=== PATIENT | female | born 1945 | race African-American/Black ===

== ENCOUNTER 2018-09-10 09:32 | Inpatient (IN) ==
[2018-09-10] MEDS ORDERED: SODIUM CHLORIDE 0.9% 1,000 ML IV STA (10:19)
[2018-09-10] MEDS ORDERED: ONDANSETRON 4 MG/2 ML VIAL IV STA (10:19)
[2018-09-10] MEDS ORDERED: HYDROmorphone 2 MG/1 ML VIAL IV STA (10:19)
[2018-09-10 10:52] LABS: Basophils % 0.3 % (0.0-0.8); Eosinophils # 0.1 10*3/uL (0.0-0.87); Eosinophils % 0.8 % (0.00-10.9); Hematocrit 43.4 VOL% (35.7-47.0); Hemoglobin 14.1 GM/DL (12.0-16.0); Immature Granulocytes % 0.3 %; Immature Granulocytes Absolute 0.03 #; Lymphocytes # 2.2 10*3/uL (1.4-4.0); Lymphocytes % 24.7 % (21.3-54.2); Mean Corpuscular HGB Conc 32.5 GM/DL (32-36); Mean Corpuscular Volume 92.7 FL (87-102); Monocytes % 9.6 % (1.7-12.7); Neutrophils % 64.3 % (38.7-73.9); Platelet Count 157 T/CUMM (130-400); Red Blood Count 4.68 MC/CUMM (3.8-5.5); Red Cell Distribution Width 14.4 % (9.3-17.3); White Blood Count 9.1 T/CUMM (4-12)
[2018-09-10 11:05] LABS: Albumin 3.9 G/DL (3.4-5.0); Bilirubin,Total 0.9 MG/DL (0.2-1.0); Total Protein 8.6 G/DL (6.4-8.3)
[2018-09-10 12:27] LABS: Apearance,Urine CLEAR (Clear); Bacteria,Urine Occasional /HPF (Few); Bilirubin,Urine Negative (Negative); Blood, Urine Small mg/dL (Negative); Glucose,Urine (UA) Negative (Negative); Hyaline Casts,Urine 4 /LPF (0-3); Ketones,Urine 5 mg/dL (Negative); Mucus,Urine Occasional /LPF (Occasional); Nitrite,Urine Negative (Negative); Protein,Urine Negative; RBC,Urine 1 /HPF (0-4); Squamous Epithelial Cell,Urine Occasional /HPF (0-10); Urine Color Yellow (Yellow); Urine Specific Gravity 1.013 (1.001-1.035); Urine Urobilinogen < 2.0 EU/DL (0.2-1.0); WBC,Urine 1 /HPF (0-6)
[2018-09-10] MEDS: HYDROmorphone 2 MG/1 ML VIAL IV PRN ×2 (15:13→20:34)
[2018-09-10] MEDS: DEXTROSE 5% NACL 0.45% 1,000 ML IV SCH (15:22)
[2018-09-11] MEDS: DEXTROSE 5% NACL 0.45% 1,000 ML IV SCH ×3 (03:15→16:11)
[2018-09-11 04:25] LABS: Basophils % 0.1 % (0.0-0.8); Eosinophils # 0.1 10*3/uL (0.0-0.87); Eosinophils % 0.6 % (0.00-10.9); Hematocrit 36.2 VOL% (35.7-47.0); Hemoglobin 11.9 GM/DL (12.0-16.0); Immature Granulocytes % 0.4 %; Immature Granulocytes Absolute 0.03 #; Lymphocytes # 1.1 10*3/uL (1.4-4.0); Lymphocytes % 13.4 % (21.3-54.2); Mean Corpuscular HGB Conc 32.9 GM/DL (32-36); Mean Corpuscular Volume 92.1 FL (87-102); Mean Platelet Volume 10.4 FL (9.6-12.0); Monocytes % 13.4 % (1.7-12.7); Neutrophils % 72.1 % (38.7-73.9); Platelet Count 152 T/CUMM (130-400); Red Blood Count 3.93 MC/CUMM (3.8-5.5); Red Cell Distribution Width 14.1 % (9.3-17.3); White Blood Count 8.1 T/CUMM (4-12)
[2018-09-11 04:41] LABS: Calcium 8.1 MG/DL (8.5-10.1); Osmolality,Calculated 285.3 MOS/KG (273-304)
[2018-09-11] MEDS: HYDROmorphone 2 MG/1 ML VIAL IV PRN ×4 (04:41→19:03)
[2018-09-11] MEDS: PANTOPRAZOLE 40 MG VIAL IV SCH (09:12)
[2018-09-11] MEDS: ENOXAPARIN 30 MG/0.3 ML SYRINGE SUBCUT SCH ×2 (09:15→20:27)
[2018-09-11] MEDS: ONDANSETRON 4 MG/2 ML VIAL IV PRN (09:18)
[2018-09-12] MEDS: ONDANSETRON 4 MG/2 ML VIAL IV PRN (00:10)
[2018-09-12] MEDS: HYDROmorphone 2 MG/1 ML VIAL IV PRN ×9 (00:11→22:20)
[2018-09-12] MEDS: DEXTROSE 5% NACL 0.45% 1,000 ML IV SCH ×3 (00:19→21:37)
[2018-09-12] MEDS ORDERED: cefOXitin 2,000 MG in SYRINGE 1 EACH IV ONE ×2 (07:35→12:30)
[2018-09-12] MEDS: PANTOPRAZOLE 40 MG VIAL IV SCH (08:10)
[2018-09-12] MEDS: ENOXAPARIN 30 MG/0.3 ML SYRINGE SUBCUT SCH ×2 (08:13→21:29)
[2018-09-12] MEDS ORDERED: TISSUE ADHESIVE 1 EACH APPLICATOR TOP ONE (11:35)
[2018-09-12] MEDS ORDERED: ONDANSETRON 4 MG/2 ML VIAL ONE (16:04)
[2018-09-12 16:09] LABS: Apearance,Urine CLEAR (Clear); Bilirubin,Urine Negative (Negative); Blood, Urine Small mg/dL (Negative); Glucose,Urine (UA) Negative (Negative); Hyaline Casts,Urine 3 /LPF (0-3); Ketones,Urine Negative (Negative); Mucus,Urine Occasional /LPF (Occasional); Nitrite,Urine Negative (Negative); Protein,Urine Negative; RBC,Urine 3 /HPF (0-4); Squamous Epithelial Cell,Urine Occasional /HPF (0-10); Urine Color Yellow (Yellow); Urine Specific Gravity 1.015 (1.001-1.035); Urine Urobilinogen < 2.0 EU/DL (0.2-1.0); WBC,Urine 3 /HPF (0-6)
[2018-09-12] MEDS ORDERED: GLYCOPYRROLATE 0.4 MG/2 ML VIAL ONE (16:12)
[2018-09-12] MEDS ORDERED: fentaNYL 100 MCG/2 ML VIAL ONE (16:12)
[2018-09-12] MEDS ORDERED: PROPOFOL 200 MG/20 ML VIAL IV ONE (16:12)
[2018-09-12] MEDS ORDERED: ROCURONIUM 100 MG/10 ML VIAL IV ONE (16:12)
[2018-09-12] MEDS ORDERED: SEVOFLURANE 1 UNIT/15 MINUTE INH ONE (16:12)
[2018-09-12] MEDS ORDERED: SUCCINYLCHOLINE 200 MG/10 ML VIAL ONE (16:12)
[2018-09-12] MEDS ORDERED: NEOSTIGMINE 10 MG/10 ML VIAL ONE (16:13)
[2018-09-12] MEDS ORDERED: LACTATED RINGERS 1,000 ML IV ONE ×2 (16:13→22:03)
[2018-09-12] MEDS: ROSUVASTATIN 10 MG TABLET PO SCH (20:51)
[2018-09-12] MEDS: TERAZOSIN 5 MG CAPSULE PO SCH (20:52)
[2018-09-12] MEDS: GABAPENTIN 100 MG CAPSULE PO SCH (20:53)
[2018-09-12 21:36] LABS: Basophils % 0.3 % (0.0-0.8); Hemoglobin 13.7 GM/DL (12.0-16.0); Immature Granulocytes % 0.3 %; Immature Granulocytes Absolute 0.01 #; Lymphocytes # 0.6 10*3/uL (1.4-4.0); Mean Corpuscular HGB Conc 31.9 GM/DL (32-36); Mean Corpuscular Volume 93.7 FL (87-102); Mean Platelet Volume 10.7 FL (9.6-12.0); Monocytes % 11.6 % (1.7-12.7); Neutrophils % 70.8 % (38.7-73.9); Platelet Count 171 T/CUMM (130-400); Red Blood Count 4.59 MC/CUMM (3.8-5.5); White Blood Count 3.4 T/CUMM (4-12)
[2018-09-12 21:54] LABS: Calcium 7.3 MG/DL (8.5-10.1); Osmolality,Calculated 277.7 MOS/KG (273-304)
[2018-09-12] MEDS ORDERED: POTASSIUM CHLORIDE RIDER 10 MEQ in PREMIX 1 EACH IV PRN (22:03)
[2018-09-12] MEDS: POTASSIUM CHLORIDE RIDER 10 MEQ in PREMIX 1 EACH IV PRN ×2 (22:31→23:28)
[2018-09-13] MEDS: POTASSIUM CHLORIDE RIDER 10 MEQ in PREMIX 1 EACH IV PRN ×3 (00:30→02:32)
[2018-09-13 00:33] LABS: Band Neutrophils 22 % (0-10); Hypochromasia Slight; Lymphocytes 22 % (20-55); Metamyelocytes 4 %; Myelocytes 1 %; Platelet Estimate Normal; Reactive Lymphocytes 2+; Segmented Neutrophils 38 % (50-85); Total Cells Counted 100
[2018-09-13] MEDS: HYDROmorphone 2 MG/1 ML VIAL IV PRN ×3 (03:51→17:28)
[2018-09-13 05:46] LABS: Basophils % 0.6 % (0.0-0.8); Hematocrit 39.5 VOL% (35.7-47.0); Hemoglobin 12.7 GM/DL (12.0-16.0); Immature Granulocytes % 0.7 %; Immature Granulocytes Absolute 0.05 #; Lymphocytes # 0.7 10*3/uL (1.4-4.0); Lymphocytes % 10.3 % (21.3-54.2); Mean Corpuscular HGB Conc 32.2 GM/DL (32-36); Mean Corpuscular Volume 93.4 FL (87-102); Mean Platelet Volume 11.3 FL (9.6-12.0); Monocytes % 6.8 % (1.7-12.7); Neutrophils % 81.6 % (38.7-73.9); Platelet Count 181 T/CUMM (130-400); Red Blood Count 4.23 MC/CUMM (3.8-5.5); Red Cell Distribution Width 14.2 % (9.3-17.3); White Blood Count 7.2 T/CUMM (4-12)
[2018-09-13 05:59] LABS: Calcium 7.1 MG/DL (8.5-10.1); Osmolality,Calculated 274.8 MOS/KG (273-304)
[2018-09-13] MEDS ORDERED: LACTATED RINGERS 1,000 ML IV ONE ×2 (07:23→11:46)
[2018-09-13 08:09] LABS: Band Neutrophils 58 % (0-10); Lymphocytes 23 % (20-55); Metamyelocytes 10 %; Myelocytes 2 %; Platelet Estimate Normal; Segmented Neutrophils 3 % (50-85); Total Cells Counted 100
[2018-09-13 08:10] LABS: Anisocytosis 1+; Poikilocytosis Slight; Smudge Cells Few
[2018-09-13] MEDS: DILTIAZEM CD 300 MG CAPSULE PO SCH (08:10)
[2018-09-13] MEDS: POTASSIUM CHLORIDE 20 MEQ TABLET PO SCH (08:10)
[2018-09-13] MEDS: ENOXAPARIN 30 MG/0.3 ML SYRINGE SUBCUT SCH ×2 (08:10→20:25)
[2018-09-13] MEDS: PANTOPRAZOLE 40 MG VIAL IV SCH (08:10)
[2018-09-13] MEDS: DEXTROSE 5% NACL 0.45% 1,000 ML IV SCH (09:00)
[2018-09-13 09:22] LABS: ABG Base Excess -0.6 MMOL/L (-2.5-2.5); ABG HCO3 23.9 MMOL/L (20-26); ABG Oxygen Saturation 93.6 % (95-100); ABG PH 7.422 (7.35-7.45); ABG PO2 65.6 MM HG (80-95); ABG TCO2 20.8 MMOL/L (23-27)
[2018-09-13] MEDS ORDERED: ALBUMIN 5% 12.5 GM/250 ML VIAL IV ONE ×2 (09:56→18:55)
[2018-09-13 11:12] LABS: ABG Base Excess -7.8 MMOL/L (-2.5-2.5); ABG HCO3 18.1 MMOL/L (20-26); ABG Oxygen Saturation 99.4 % (95-100); ABG PCO2 51.9 MM HG (35-48); ABG TCO2 19.2 MMOL/L (23-27)
[2018-09-13 11:13] LABS: ABG PH 7.201 (7.35-7.45)
[2018-09-13] MEDS ORDERED: SEVOFLURANE 1 UNIT/15 MINUTE INH ONE (11:33)
[2018-09-13] MEDS ORDERED: fentaNYL 100 MCG/2 ML VIAL ONE (11:34)
[2018-09-13] MEDS ORDERED: MIDAZOLAM 10 MG/2 ML VIAL ONE (11:34)
[2018-09-13] MEDS ORDERED: ETOMIDATE 40 MG/20 ML VIAL IV ONE (11:34)
[2018-09-13] MEDS ORDERED: SUCCINYLCHOLINE 200 MG/10 ML VIAL ONE (11:34)
[2018-09-13] MEDS ORDERED: PHENYLEPHRINE 1 MG/10 ML SYRINGE IV ONE (11:34)
[2018-09-13] MEDS ORDERED: LACTATED RINGERS 2,000 ML IV ONE (11:35)
[2018-09-13] MEDS ORDERED: ROCURONIUM 100 MG/10 ML VIAL IV ONE (11:35)
[2018-09-13 12:02] LABS: Basophils % 0.2 % (0.0-0.8); Eosinophils % 0.1 % (0.00-10.9); Hematocrit 29.5 VOL% (35.7-47.0); Hemoglobin 9.5 GM/DL (12.0-16.0); Immature Granulocytes % 1.1 %; Immature Granulocytes Absolute 0.12 #; Lymphocytes # 1.2 10*3/uL (1.4-4.0); Lymphocytes % 11.5 % (21.3-54.2); Mean Corpuscular HGB Conc 32.2 GM/DL (32-36); Mean Corpuscular Volume 95.2 FL (87-102); Mean Platelet Volume 10.9 FL (9.6-12.0); Monocytes % 0.8 % (1.7-12.7); Neutrophils % 86.3 % (38.7-73.9); Platelet Count 121 T/CUMM (130-400); Red Cell Distribution Width 14.3 % (9.3-17.3); White Blood Count 10.7 T/CUMM (4-12)
[2018-09-13 12:22] LABS: Calcium 6.6 MG/DL (8.5-10.1); Osmolality,Calculated 277.8 MOS/KG (273-304)
[2018-09-13 12:23] LABS: Band Neutrophils 17 % (0-10); Hypochromasia 1+; Lymphocytes 15 % (20-55); Myelocytes 6 %; Platelet Estimate Adequate; Segmented Neutrophils 62 % (50-85); Total Cells Counted 100
[2018-09-13] MEDS: PIPERACILLIN/TAZOBACTAM 3,375 MG in SODIUM CHLORIDE 0.9% 100 ML IV SCH (12:38)
[2018-09-13] MEDS ORDERED: MAGNESIUM SULF RIDER 2 GM in PREMIX 1 EACH IV ONE (13:30)
[2018-09-13] MEDS: LACTATED RINGERS 1,000 ML IV SCH ×2 (13:46→20:43)
[2018-09-13 14:53] LABS: Apearance,Urine Slightly Hazy (Clear); Bacteria,Urine Occasional /HPF (Few); Bilirubin,Urine Negative (Negative); Blood, Urine Moderate mg/dL (Negative); Glucose,Urine (UA) Negative (Negative); Ketones,Urine Negative (Negative); Mucus,Urine Occasional /LPF (Occasional); Nitrite,Urine Negative (Negative); Protein,Urine Negative; RBC,Urine 3 /HPF (0-4); Squamous Epithelial Cell,Urine Occasional /HPF (0-10); Urine Color Yellow (Yellow); Urine Specific Gravity 1.006 (1.001-1.035); Urine Urobilinogen < 2.0 EU/DL (0.2-1.0); WBC,Urine 5 /HPF (0-6)
[2018-09-13] MEDS ORDERED: GLUCAGON 1 MG VIAL IM PRN (15:06)
[2018-09-13] MEDS ORDERED: DEXTROSE 50% 25 GM/50 ML SYRINGE IV PRN (15:06)
[2018-09-13] MEDS: PROPOFOL 1,000 MG/100 ML BOTTLE IV SCH (15:26)
[2018-09-13] MEDS ORDERED: TRACE ELEMENTS (5) 1 ML, MULTIVITAMIN INJ 10 ML in AMINO ACIDS/DEXT/LYTES 5-15% 2,000 ML IV SCH (17:00)
[2018-09-13] MEDS ORDERED: DEXTROSE 10% 1,000 ML IV PRN (17:00)
[2018-09-13 17:44] LABS: ABG Base Excess -18.4 MMOL/L (-2.5-2.5); ABG HCO3 10.1 MMOL/L (20-26); ABG Oxygen Saturation 98.4 % (95-100); ABG PH 7.212 (7.35-7.45); ABG TCO2 8.3 MMOL/L (23-27)
[2018-09-13 17:47] LABS: ABG PCO2 20.9 MM HG (35-48)
[2018-09-13] MEDS: INSULIN REGULAR 100 UNIT/ML SUBCUT SCH (18:32)
[2018-09-13] MEDS ORDERED: SODIUM BICARBONATE 50 MEQ/50 ML VIAL IV ONE (18:46)
[2018-09-13] MEDS ORDERED: ALBUMIN 5% 25 GM in PREMIX 1 EACH IV ONE (18:51)
[2018-09-13 19:24] LABS: Basophils # 0.1 10*3/uL (0.0-0.2); Basophils % 0.7 % (0.0-0.8); Eosinophils # 0.1 10*3/uL (0.0-0.87); Eosinophils % 0.8 % (0.00-10.9); Hematocrit 30.3 VOL% (35.7-47.0); Hemoglobin 9.6 GM/DL (12.0-16.0); Immature Granulocytes % 0.9 %; Immature Granulocytes Absolute 0.09 #; Lymphocytes # 1.3 10*3/uL (1.4-4.0); Lymphocytes % 12.3 % (21.3-54.2); Mean Corpuscular HGB Conc 31.7 GM/DL (32-36); Mean Corpuscular Volume 94.7 FL (87-102); Mean Platelet Volume 11.1 FL (9.6-12.0); Monocytes % 4.1 % (1.7-12.7); Neutrophils % 81.2 % (38.7-73.9); Platelet Count 132 T/CUMM (130-400); Red Cell Distribution Width 14.2 % (9.3-17.3); White Blood Count 10.5 T/CUMM (4-12)
[2018-09-13 19:40] LABS: Calcium 6.9 MG/DL (8.5-10.1); Osmolality,Calculated 270.1 MOS/KG (273-304)
[2018-09-13 19:51] LABS: Band Neutrophils 36 % (0-10); Burr Cells Few; Eosinophils 2 % (0-10); Hypochromasia Slight; Lymphocytes 15 % (20-55); Metamyelocytes 2 %; Myelocytes 1 %; Platelet Estimate Adequate; Segmented Neutrophils 41 % (50-85); Total Cells Counted 100
[2018-09-13 19:59] LABS: ABG Base Excess 0.7 MMOL/L (-2.5-2.5); ABG HCO3 25.1 MMOL/L (20-26); ABG Oxygen Saturation 98.9 % (95-100); ABG PCO2 42.2 MM HG (35-48); ABG PH 7.393 (7.35-7.45); ABG TCO2 23.7 MMOL/L (23-27)
[2018-09-13] MEDS: ROSUVASTATIN 10 MG TABLET PO SCH (20:25)
[2018-09-13] MEDS: GABAPENTIN 100 MG CAPSULE PO SCH (20:25)
[2018-09-13] MEDS: TERAZOSIN 5 MG CAPSULE PO SCH (20:26)
[2018-09-14] MEDS: INSULIN REGULAR 100 UNIT/ML SUBCUT SCH ×4 (00:42→18:30)
[2018-09-14] MEDS: PIPERACILLIN/TAZOBACTAM 3,375 MG in SODIUM CHLORIDE 0.9% 100 ML IV SCH ×2 (00:46→11:53)
[2018-09-14] MEDS: LACTATED RINGERS 1,000 ML IV SCH ×2 (03:03→09:46)
[2018-09-14 03:19] LABS: ABG Base Excess 1.3 MMOL/L (-2.5-2.5); ABG HCO3 24.4 MMOL/L (20-26); ABG Oxygen Saturation 98.5 % (95-100); ABG PCO2 32.4 MM HG (35-48); ABG PH 7.494 (7.35-7.45); ABG PO2 172.7 MM HG (80-95); ABG TCO2 25.4 MMOL/L (23-27)
[2018-09-14 03:29] LABS: Basophils % 0.3 % (0.0-0.8); Eosinophils # 0.1 10*3/uL (0.0-0.87); Eosinophils % 1.4 % (0.00-10.9); Hematocrit 26.1 VOL% (35.7-47.0); Hemoglobin 8.4 GM/DL (12.0-16.0); Immature Granulocytes % 2.4 %; Immature Granulocytes Absolute 0.24 #; Lymphocytes # 0.7 10*3/uL (1.4-4.0); Lymphocytes % 7.3 % (21.3-54.2); Mean Corpuscular HGB Conc 32.2 GM/DL (32-36); Mean Corpuscular Volume 92.2 FL (87-102); Mean Platelet Volume 10.6 FL (9.6-12.0); Monocytes % 5.2 % (1.7-12.7); Neutrophils % 83.4 % (38.7-73.9); Platelet Count 111 T/CUMM (130-400); Red Blood Count 2.83 MC/CUMM (3.8-5.5); Red Cell Distribution Width 14.2 % (9.3-17.3)
[2018-09-14 03:42] LABS: Albumin 2.2 G/DL (3.4-5.0); Bilirubin,Total 0.9 MG/DL (0.2-1.0); Osmolality,Calculated 277.7 MOS/KG (273-304); Total Protein 4.3 G/DL (6.4-8.3)
[2018-09-14 03:56] LABS: Prealbumin 6.6 MG/DL (20-40)
[2018-09-14 04:14] LABS: Platelet Estimate Decreased; Polychromasia Few
[2018-09-14] MEDS: HYDROmorphone 2 MG/1 ML VIAL IV PRN (08:20)
[2018-09-14] MEDS: PANTOPRAZOLE 40 MG VIAL IV SCH (08:24)
[2018-09-14] MEDS: ENOXAPARIN 30 MG/0.3 ML SYRINGE SUBCUT SCH ×2 (08:24→21:26)
[2018-09-14] MEDS ORDERED: POTASSIUM PHOSPHATE 15 MMOL in SODIUM CHLORIDE 0.9% 100 ML IV ONE (11:00)
[2018-09-14 11:11] LABS: ABG HCO3 25.9 MMOL/L (20-26); ABG Oxygen Saturation 97.8 % (95-100); ABG PCO2 37.1 MM HG (35-48); ABG PH 7.461 (7.35-7.45); ABG PO2 115.4 MM HG (80-95)
[2018-09-14] MEDS ORDERED: ACETAMINOPHEN 325 MG/10.15 ML UDCUP PO PRN (11:57)
[2018-09-14] MEDS: POTASSIUM CHLORIDE 20 MEQ TABLET PO SCH (12:00)
[2018-09-14] MEDS: DILTIAZEM CD 300 MG CAPSULE PO SCH (12:02)
[2018-09-14] MEDS: POTASSIUM CHLORIDE 20 MEQ/15 ML UDCUP PER TUBE SCH (12:41)
[2018-09-14] MEDS: DILTIAZEM 90 MG TABLET PO SCH ×3 (12:42→21:25)
[2018-09-14] MEDS ORDERED: FUROSEMIDE 40 MG/4 ML VIAL IV ONE (13:48)
[2018-09-14] MEDS ORDERED: FAT EMULSION 20% 250 ML IV SCH (14:00)
[2018-09-14] MEDS ORDERED: ALBUTEROL 2.5 MG/3 ML NEB RESP TX PRN (14:12)
[2018-09-14] MEDS: CHLORHEXIDINE 4% SOLN 118 ML BOTTLE TOP SCH (15:30)
[2018-09-14] MEDS: SODIUM HYPOCHLORITE 0.25% IRRIG 473 ML BOTTLE TOP SCH (15:30)
[2018-09-14] MEDS: LEVOFLOXACIN INJ 750 MG in PREMIX 1 EACH IV SCH (15:51)
[2018-09-14] MEDS ORDERED: ACETAMINOPHEN 650 MG SUPP RECTAL PRN (16:53)
[2018-09-14] MEDS ORDERED: TRACE ELEMENTS (5) 1 ML, MULTIVITAMIN INJ 10 ML in AMINO ACIDS/DEXT/LYTES 5-15% 2,000 ML IV SCH (17:00)
[2018-09-14] MEDS: PROPOFOL 1,000 MG/100 ML BOTTLE IV SCH ×2 (17:16→17:50)
[2018-09-14] MEDS: MORPHINE 4 MG/1 ML VIAL IV PRN ×2 (17:25→19:53)
[2018-09-14] MEDS: ALBUTEROL/IPRATROPIUM 3 ML NEB RESP TX SCH (20:10)
[2018-09-14] MEDS: TERAZOSIN 5 MG CAPSULE PO SCH (21:25)
[2018-09-14] MEDS: ROSUVASTATIN 10 MG TABLET PO SCH (21:25)
[2018-09-14] MEDS: GABAPENTIN 100 MG CAPSULE PO SCH (21:25)
[2018-09-15] MEDS: INSULIN REGULAR 100 UNIT/ML SUBCUT SCH ×4 (00:54→18:25)
[2018-09-15] MEDS: PIPERACILLIN/TAZOBACTAM 3,375 MG in SODIUM CHLORIDE 0.9% 100 ML IV SCH ×2 (01:10→12:57)
[2018-09-15] MEDS: ALBUTEROL/IPRATROPIUM 3 ML NEB RESP TX SCH ×4 (01:19→19:11)
[2018-09-15 05:14] LABS: ABG HCO3 28.9 MMOL/L (20-26); ABG Oxygen Saturation 98.9 % (95-100); ABG PCO2 40.2 MM HG (35-48); ABG PH 7.467 (7.35-7.45); ABG TCO2 25.5 MMOL/L (23-27)
[2018-09-15 05:35] LABS: Basophils # 0.1 10*3/uL (0.0-0.2); Basophils % 0.4 % (0.0-0.8); Eosinophils # 0.2 10*3/uL (0.0-0.87); Hematocrit 22.4 VOL% (35.7-47.0); Hemoglobin 7.5 GM/DL (12.0-16.0); Immature Granulocytes Absolute 0.12 #; Lymphocytes # 0.8 10*3/uL (1.4-4.0); Lymphocytes % 6.5 % (21.3-54.2); Mean Corpuscular HGB Conc 33.5 GM/DL (32-36); Mean Corpuscular Volume 91.1 FL (87-102); Mean Platelet Volume 11.2 FL (9.6-12.0); Monocytes % 3.8 % (1.7-12.7); Neutrophils % 86.3 % (38.7-73.9); Platelet Count 124 T/CUMM (130-400); Red Blood Count 2.46 MC/CUMM (3.8-5.5); Red Cell Distribution Width 14.6 % (9.3-17.3); White Blood Count 11.7 T/CUMM (4-12)
[2018-09-15] MEDS: MORPHINE 4 MG/1 ML VIAL IV PRN ×3 (05:39→20:50)
[2018-09-15 05:42] LABS: Calcium 7.8 MG/DL (8.5-10.1); Osmolality,Calculated 282.5 MOS/KG (273-304)
[2018-09-15] MEDS ORDERED: SODIUM CHLORIDE 0.9% 1,000 ML IV PRN ×2 (05:46→10:37)
[2018-09-15] MEDS ORDERED: SODIUM PHOSPHATE INJ 15 MMOL in SODIUM CHLORIDE 0.9% 250 ML IV ONE (05:55)
[2018-09-15 06:28] LABS: Burr Cells 2+
[2018-09-15 06:29] LABS: Anisocytosis Slight; Microcytosis Slight
[2018-09-15 06:30] LABS: Ovalocytes Slight; Platelet Estimate Adequate; Target Cells Slight
[2018-09-15] MEDS: POTASSIUM CHLORIDE RIDER 20 MEQ in PREMIX 1 EACH IV PRN (06:44)
[2018-09-15] MEDS ORDERED: FUROSEMIDE 40 MG/4 ML VIAL IV ONE (08:11)
[2018-09-15] MEDS: PANTOPRAZOLE 40 MG VIAL IV SCH (08:52)
[2018-09-15] MEDS: ENOXAPARIN 30 MG/0.3 ML SYRINGE SUBCUT SCH ×2 (08:53→21:48)
[2018-09-15] MEDS: POTASSIUM CHLORIDE 20 MEQ/15 ML UDCUP PER TUBE SCH (08:53)
[2018-09-15] MEDS: DILTIAZEM 90 MG TABLET PO SCH ×3 (08:54→21:47)
[2018-09-15] MEDS: SODIUM HYPOCHLORITE 0.25% IRRIG 473 ML BOTTLE TOP SCH (09:03)
[2018-09-15] MEDS: CHLORHEXIDINE 4% SOLN 118 ML BOTTLE TOP SCH (09:03)
[2018-09-15] MEDS: FAT EMULSION 20% 250 ML IV SCH (13:59)
[2018-09-15] MEDS ORDERED: MULTIVITAMIN INJ 10 ML, TRACE ELEMENTS (5) 1 ML in AMINO ACIDS/DEXT/LYTES 5-15% 2,000 ML IV SCH (15:00)
[2018-09-15] MEDS: ONDANSETRON 4 MG/2 ML VIAL IV PRN (20:50)
[2018-09-15] MEDS: TERAZOSIN 5 MG CAPSULE PO SCH (21:47)
[2018-09-15] MEDS: ROSUVASTATIN 10 MG TABLET PO SCH (21:47)
[2018-09-15] MEDS: GABAPENTIN 100 MG CAPSULE PO SCH (21:48)
[2018-09-16] MEDS: INSULIN REGULAR 100 UNIT/ML SUBCUT SCH ×4 (00:18→17:52)
[2018-09-16] MEDS: ALBUTEROL/IPRATROPIUM 3 ML NEB RESP TX SCH ×4 (00:27→19:10)
[2018-09-16] MEDS: PIPERACILLIN/TAZOBACTAM 3,375 MG in SODIUM CHLORIDE 0.9% 100 ML IV SCH ×2 (00:35→11:44)
[2018-09-16] MEDS: MORPHINE 4 MG/1 ML VIAL IV PRN ×4 (02:36→20:14)
[2018-09-16 06:49] LABS: Calcium 7.9 MG/DL (8.5-10.1); Osmolality,Calculated 289.1 MOS/KG (273-304)
[2018-09-16] MEDS: POTASSIUM CHLORIDE RIDER 20 MEQ in PREMIX 1 EACH IV PRN (08:50)
[2018-09-16] MEDS: PANTOPRAZOLE 40 MG VIAL IV SCH (08:51)
[2018-09-16] MEDS: ONDANSETRON 4 MG/2 ML VIAL IV PRN ×3 (08:51→20:44)
[2018-09-16] MEDS: POTASSIUM CHLORIDE 20 MEQ/15 ML UDCUP PER TUBE SCH (08:52)
[2018-09-16] MEDS: DILTIAZEM 90 MG TABLET PO SCH ×3 (08:52→20:13)
[2018-09-16] MEDS: ENOXAPARIN 30 MG/0.3 ML SYRINGE SUBCUT SCH ×2 (08:52→20:14)
[2018-09-16] MEDS: SODIUM HYPOCHLORITE 0.25% IRRIG 473 ML BOTTLE TOP SCH (08:53)
[2018-09-16] MEDS: CHLORHEXIDINE 4% SOLN 118 ML BOTTLE TOP SCH (08:53)
[2018-09-16] MEDS: ACETAMINOPHEN 325 MG TABLET PO PRN (08:53)
[2018-09-16 10:26] LABS: Basophils # 0.1 10*3/uL (0.0-0.2); Basophils % 0.8 % (0.0-0.8); Eosinophils # 0.2 10*3/uL (0.0-0.87); Eosinophils % 1.4 % (0.00-10.9); Hematocrit 34.8 VOL% (35.7-47.0); Hemoglobin 11.6 GM/DL (12.0-16.0); Immature Granulocytes % 3.4 %; Immature Granulocytes Absolute 0.57 #; Lymphocytes # 1.6 10*3/uL (1.4-4.0); Lymphocytes % 9.2 % (21.3-54.2); Mean Corpuscular HGB Conc 33.3 GM/DL (32-36); Mean Platelet Volume 11.1 FL (9.6-12.0); Monocytes % 5.2 % (1.7-12.7); Platelet Count 144 T/CUMM (130-400); Red Blood Count 3.91 MC/CUMM (3.8-5.5); Red Cell Distribution Width 14.9 % (9.3-17.3); White Blood Count 16.8 T/CUMM (4-12)
[2018-09-16] MEDS: POTASSIUM CHLORIDE RIDER 10 MEQ in PREMIX 1 EACH IV PRN (10:55)
[2018-09-16 11:35] LABS: Band Neutrophils 1 % (0-10); Lymphocytes 6 % (20-55); Segmented Neutrophils 91 % (50-85); Total Cells Counted 100
[2018-09-16 11:36] LABS: Anisocytosis Slight; Ovalocytes Slight; Polychromasia Slight
[2018-09-16 11:37] LABS: Platelet Estimate Adequate; Schistocytes Slight; Target Cells Few
[2018-09-16] MEDS ORDERED: SODIUM PHOSPHATE INJ 15 MMOL in SODIUM CHLORIDE 0.9% 250 ML IV ONE (12:00)
[2018-09-16] MEDS: LEVOFLOXACIN INJ 750 MG in PREMIX 1 EACH IV SCH (13:43)
[2018-09-16] MEDS: TRACE ELEMENTS IV SCH (17:04)
[2018-09-16] MEDS: MULTIVITAMIN IV SCH (17:04)
[2018-09-16] MEDS: [UNRECOGNIZED DRUG - OTHER] IV SCH (17:04)
[2018-09-16] MEDS: POTASSIUM CHLORIDE IV SCH (17:04)
[2018-09-16] MEDS: TERAZOSIN 5 MG CAPSULE PO SCH (20:13)
[2018-09-16] MEDS: GABAPENTIN 100 MG CAPSULE PO SCH (20:13)
[2018-09-16] MEDS: ROSUVASTATIN 10 MG TABLET PO SCH (20:14)
[2018-09-16] MEDS: HALOPERIDOL 5 MG/ML AMP IV PRN (20:16)
[2018-09-17] MEDS: ALBUTEROL/IPRATROPIUM 3 ML NEB RESP TX SCH ×4 (00:29→20:22)
[2018-09-17] MEDS: INSULIN REGULAR 100 UNIT/ML SUBCUT SCH ×4 (00:41→18:11)
[2018-09-17] MEDS: PIPERACILLIN/TAZOBACTAM 3,375 MG in SODIUM CHLORIDE 0.9% 100 ML IV SCH ×2 (01:25→11:50)
[2018-09-17] MEDS: HALOPERIDOL 5 MG/ML AMP IV PRN (02:54)
[2018-09-17] MEDS: POTASSIUM CHLORIDE 20 MEQ/15 ML UDCUP PER TUBE SCH (08:26)
[2018-09-17] MEDS: FAT EMULSION 20% 250 ML IV SCH (08:26)
[2018-09-17] MEDS: DILTIAZEM 90 MG TABLET PO SCH ×3 (08:26→21:41)
[2018-09-17] MEDS: MORPHINE 4 MG/1 ML VIAL IV PRN ×4 (08:26→21:18)
[2018-09-17] MEDS: ONDANSETRON 4 MG/2 ML VIAL IV PRN ×2 (08:27→21:18)
[2018-09-17] MEDS: PANTOPRAZOLE 40 MG VIAL IV SCH (08:27)
[2018-09-17] MEDS: ENOXAPARIN 30 MG/0.3 ML SYRINGE SUBCUT SCH ×2 (08:28→21:41)
[2018-09-17] MEDS: SODIUM HYPOCHLORITE 0.25% IRRIG 473 ML BOTTLE TOP SCH (08:28)
[2018-09-17] MEDS: CHLORHEXIDINE 4% SOLN 118 ML BOTTLE TOP SCH (08:28)
[2018-09-17] MEDS: ACETAMINOPHEN 325 MG TABLET PO PRN (15:17)
[2018-09-17 17:30] LABS: Basophils # 0.1 10*3/uL (0.0-0.2); Basophils % 0.7 % (0.0-0.8); Eosinophils # 0.3 10*3/uL (0.0-0.87); Eosinophils % 1.6 % (0.00-10.9); Hemoglobin 10.7 GM/DL (12.0-16.0); Immature Granulocytes % 6.8 %; Immature Granulocytes Absolute 1.14 #; Lymphocytes # 2.6 10*3/uL (1.4-4.0); Lymphocytes % 15.3 % (21.3-54.2); Mean Corpuscular HGB Conc 32.4 GM/DL (32-36); Mean Corpuscular Volume 92.2 FL (87-102); Mean Platelet Volume 10.7 FL (9.6-12.0); Monocytes % 6.8 % (1.7-12.7); Neutrophils % 68.8 % (38.7-73.9); Platelet Count 153 T/CUMM (130-400); Red Blood Count 3.58 MC/CUMM (3.8-5.5); Red Cell Distribution Width 15.7 % (9.3-17.3); White Blood Count 16.7 T/CUMM (4-12)
[2018-09-17] MEDS: TRACE ELEMENTS IV SCH (17:33)
[2018-09-17] MEDS: MULTIVITAMIN IV SCH (17:33)
[2018-09-17] MEDS: [UNRECOGNIZED DRUG - OTHER] IV SCH (17:33)
[2018-09-17] MEDS: POTASSIUM CHLORIDE IV SCH (17:33)
[2018-09-17 17:50] LABS: Albumin 1.8 G/DL (3.4-5.0); Bilirubin,Total 0.5 MG/DL (0.2-1.0); Calcium 7.8 MG/DL (8.5-10.1); Osmolality,Calculated 290.8 MOS/KG (273-304); Total Protein 5.7 G/DL (6.4-8.3)
[2018-09-17 18:25] LABS: Band Neutrophils 7 % (0-10); Eosinophils 3 % (0-10); Lymphocytes 20 % (20-55); Segmented Neutrophils 68 % (50-85)
[2018-09-17 18:29] LABS: Anisocytosis Slight
[2018-09-17 18:30] LABS: Platelet Estimate Normal; Total Cells Counted 100
[2018-09-17] MEDS: ROSUVASTATIN 10 MG TABLET PO SCH (21:41)
[2018-09-17] MEDS: TERAZOSIN 5 MG CAPSULE PO SCH (21:41)
[2018-09-17] MEDS: GABAPENTIN 100 MG CAPSULE PO SCH (21:41)
[2018-09-18] MEDS: INSULIN REGULAR 100 UNIT/ML SUBCUT SCH ×4 (00:49→20:38)
[2018-09-18] MEDS: PIPERACILLIN/TAZOBACTAM 3,375 MG in SODIUM CHLORIDE 0.9% 100 ML IV SCH ×2 (00:49→12:32)
[2018-09-18] MEDS: ALBUTEROL/IPRATROPIUM 3 ML NEB RESP TX SCH ×4 (01:14→19:29)
[2018-09-18] MEDS: MORPHINE 4 MG/1 ML VIAL IV PRN (01:43)
[2018-09-18] MEDS: HYDROmorphone 2 MG/1 ML VIAL IV PRN ×5 (03:06→20:39)
[2018-09-18 05:22] LABS: Calcium 7.9 MG/DL (8.5-10.1); Osmolality,Calculated 296.4 MOS/KG (273-304)
[2018-09-18] MEDS: SODIUM HYPOCHLORITE 0.25% IRRIG 473 ML BOTTLE TOP SCH (08:06)
[2018-09-18] MEDS: CHLORHEXIDINE 4% SOLN 118 ML BOTTLE TOP SCH (08:06)
[2018-09-18] MEDS: ENOXAPARIN 30 MG/0.3 ML SYRINGE SUBCUT SCH ×2 (08:21→21:03)
[2018-09-18] MEDS: PANTOPRAZOLE 40 MG VIAL IV SCH (08:21)
[2018-09-18] MEDS: POTASSIUM CHLORIDE 20 MEQ/15 ML UDCUP PER TUBE SCH (09:51)
[2018-09-18] MEDS: DILTIAZEM 90 MG TABLET PO SCH ×3 (09:51→21:02)
[2018-09-18] MEDS: LEVOFLOXACIN INJ 750 MG in PREMIX 1 EACH IV SCH (14:11)
[2018-09-18] MEDS: [UNRECOGNIZED DRUG - OTHER] IV SCH (17:31)
[2018-09-18] MEDS: TRACE ELEMENTS IV SCH (17:31)
[2018-09-18] MEDS: MULTIVITAMIN IV SCH (17:31)
[2018-09-18] MEDS: POTASSIUM CHLORIDE IV SCH (17:31)
[2018-09-18] MEDS: ONDANSETRON 4 MG/2 ML VIAL IV PRN (20:40)
[2018-09-18] MEDS: ROSUVASTATIN 10 MG TABLET PO SCH (21:03)
[2018-09-18] MEDS: TERAZOSIN 5 MG CAPSULE PO SCH (21:03)
[2018-09-18] MEDS: GABAPENTIN 100 MG CAPSULE PO SCH (21:03)
[2018-09-19] MEDS: INSULIN REGULAR 100 UNIT/ML SUBCUT SCH ×4 (00:19→18:12)
[2018-09-19] MEDS: PIPERACILLIN/TAZOBACTAM 3,375 MG in SODIUM CHLORIDE 0.9% 100 ML IV SCH ×2 (00:30→11:34)
[2018-09-19] MEDS: HYDROmorphone 2 MG/1 ML VIAL IV PRN ×6 (00:48→20:59)
[2018-09-19] MEDS: ALBUTEROL/IPRATROPIUM 3 ML NEB RESP TX SCH ×3 (00:57→20:06)
[2018-09-19 08:16] LABS: Basophils # 0.1 10*3/uL (0.0-0.2); Basophils % 0.5 % (0.0-0.8); Eosinophils # 0.3 10*3/uL (0.0-0.87); Hematocrit 34.7 VOL% (35.7-47.0); Hemoglobin 11.2 GM/DL (12.0-16.0); Immature Granulocytes % 5.9 %; Immature Granulocytes Absolute 1.41 #; Lymphocytes # 3.4 10*3/uL (1.4-4.0); Lymphocytes % 14.1 % (21.3-54.2); Mean Corpuscular HGB Conc 32.3 GM/DL (32-36); Mean Corpuscular Volume 92.5 FL (87-102); Mean Platelet Volume 10.8 FL (9.6-12.0); Monocytes % 4.7 % (1.7-12.7); Neutrophils % 73.8 % (38.7-73.9); Platelet Count 184 T/CUMM (130-400); Red Blood Count 3.75 MC/CUMM (3.8-5.5); Red Cell Distribution Width 15.9 % (9.3-17.3); White Blood Count 24.1 T/CUMM (4-12)
[2018-09-19 08:37] LABS: Band Neutrophils 1 % (0-10); Eosinophils 1 % (0-10); Hypochromasia 1+; Lymphocytes 7 % (20-55); Ovalocytes Slight; Platelet Estimate Adequate; Segmented Neutrophils 83 % (50-85); Total Cells Counted 100
[2018-09-19] MEDS: POTASSIUM CHLORIDE 20 MEQ/15 ML UDCUP PER TUBE SCH (08:37)
[2018-09-19] MEDS: DILTIAZEM 90 MG TABLET PO SCH ×2 (08:37→15:03)
[2018-09-19] MEDS: PANTOPRAZOLE 40 MG VIAL IV SCH (08:45)
[2018-09-19 08:48] LABS: Calcium 8.2 MG/DL (8.5-10.1); Osmolality,Calculated 292.7 MOS/KG (273-304)
[2018-09-19] MEDS: CHLORHEXIDINE 4% SOLN 118 ML BOTTLE TOP SCH (08:49)
[2018-09-19] MEDS: ENOXAPARIN 40 MG/0.4 ML SYRINGE SUBCUT SCH (08:49)
[2018-09-19] MEDS: SODIUM HYPOCHLORITE 0.25% IRRIG 473 ML BOTTLE TOP SCH (08:49)
[2018-09-19] MEDS: FAT EMULSION 20% 250 ML IV SCH (13:45)
[2018-09-19] MEDS: [UNRECOGNIZED DRUG - OTHER] IV SCH (17:25)
[2018-09-19] MEDS: POTASSIUM CHLORIDE IV SCH (17:25)
[2018-09-19] MEDS: TRACE ELEMENTS IV SCH (17:25)
[2018-09-19] MEDS: MULTIVITAMIN IV SCH (17:25)
[2018-09-19] MEDS: ONDANSETRON 4 MG/2 ML VIAL IV PRN (20:59)
[2018-09-20] MEDS: ALBUTEROL/IPRATROPIUM 3 ML NEB RESP TX SCH ×5 (00:21→19:37)
[2018-09-20] MEDS: DILTIAZEM 90 MG TABLET PO SCH ×4 (00:31→20:06)
[2018-09-20] MEDS: ROSUVASTATIN 10 MG TABLET PO SCH ×2 (00:32→20:06)
[2018-09-20] MEDS: GABAPENTIN 100 MG CAPSULE PO SCH ×2 (00:32→20:05)
[2018-09-20] MEDS: TERAZOSIN 5 MG CAPSULE PO SCH ×2 (00:32→20:06)
[2018-09-20] MEDS: FAT EMULSION 20% 250 ML IV SCH (00:37)
[2018-09-20] MEDS: PIPERACILLIN/TAZOBACTAM 3,375 MG in SODIUM CHLORIDE 0.9% 100 ML IV SCH ×3 (00:47→23:06)
[2018-09-20] MEDS: HYDROmorphone 2 MG/1 ML VIAL IV PRN ×2 (00:48→04:02)
[2018-09-20] MEDS: INSULIN REGULAR 100 UNIT/ML SUBCUT SCH ×5 (01:16→23:49)
[2018-09-20 05:14] LABS: Basophils # 0.1 10*3/uL (0.0-0.2); Basophils % 0.5 % (0.0-0.8); Eosinophils # 0.1 10*3/uL (0.0-0.87); Eosinophils % 0.5 % (0.00-10.9); Hematocrit 30.7 VOL% (35.7-47.0); Hemoglobin 9.8 GM/DL (12.0-16.0); Immature Granulocytes Absolute 1.22 #; Lymphocytes # 2.5 10*3/uL (1.4-4.0); Lymphocytes % 10.2 % (21.3-54.2); Mean Corpuscular HGB Conc 31.9 GM/DL (32-36); Mean Corpuscular Volume 94.2 FL (87-102); Mean Platelet Volume 11.3 FL (9.6-12.0); Monocytes % 4.7 % (1.7-12.7); Neutrophils % 79.1 % (38.7-73.9); Platelet Count 206 T/CUMM (130-400); Red Blood Count 3.26 MC/CUMM (3.8-5.5); Red Cell Distribution Width 15.9 % (9.3-17.3); White Blood Count 24.6 T/CUMM (4-12)
[2018-09-20 05:30] LABS: Calcium 8.7 MG/DL (8.5-10.1); Osmolality,Calculated 297.6 MOS/KG (273-304)
[2018-09-20 05:40] LABS: Band Neutrophils 6 % (0-10); Lymphocytes 4 % (20-55); Myelocytes 1 %; Segmented Neutrophils 87 % (50-85); Total Cells Counted 100
[2018-09-20 05:41] LABS: Anisocytosis 1+; Hypochromasia 1+; Platelet Estimate Normal; Target Cells Few
[2018-09-20] MEDS: MORPHINE 4 MG/1 ML VIAL IV PRN ×4 (08:11→21:15)
[2018-09-20] MEDS: SODIUM HYPOCHLORITE 0.25% IRRIG 473 ML BOTTLE TOP SCH (08:14)
[2018-09-20] MEDS: POTASSIUM CHLORIDE 20 MEQ/15 ML UDCUP PER TUBE SCH (09:13)
[2018-09-20] MEDS: PANTOPRAZOLE 40 MG VIAL IV SCH (09:13)
[2018-09-20] MEDS: CHLORHEXIDINE 4% SOLN 118 ML BOTTLE TOP SCH (09:14)
[2018-09-20] MEDS: ENOXAPARIN 40 MG/0.4 ML SYRINGE SUBCUT SCH (09:14)
[2018-09-20] MEDS ORDERED: VANCOMYCIN INJ 1,000 MG in SODIUM CHLORIDE 0.9% 250 ML IV SCH (13:00)
[2018-09-20] MEDS ORDERED: VANCOMYCIN INJ 1,250 MG in SODIUM CHLORIDE 0.9% 250 ML IV ONE (15:00)
[2018-09-20 15:23] LABS: Apearance,Urine CLOUDY (Clear); Bilirubin,Urine Negative (Negative); Blood, Urine Moderate mg/dL (Negative); Calcium Oxalate Crystals,Urine Moderate /HPF (Few); Glucose,Urine (UA) Negative (Negative); Ketones,Urine Negative (Negative); Mucus,Urine Occasional /LPF (Occasional); Nitrite,Urine Negative (Negative); Protein,Urine Negative; RBC,Urine 16 /HPF (0-4); Squamous Epithelial Cell,Urine Few /HPF (0-10); Urine Color Yellow (Yellow); Urine Specific Gravity 1.015 (1.001-1.035); Urine Urobilinogen < 2.0 EU/DL (0.2-1.0); WBC,Urine 3 /HPF (0-6)
[2018-09-20] MEDS: TRACE ELEMENTS IV SCH (17:10)
[2018-09-20] MEDS: MULTIVITAMIN IV SCH (17:10)
[2018-09-20] MEDS: POTASSIUM CHLORIDE IV SCH (17:10)
[2018-09-20] MEDS: [UNRECOGNIZED DRUG - OTHER] IV SCH (17:10)
[2018-09-20] MEDS: HYDROcod/ACETAMIN 7.5-325 MG/15 ML UDCUP PO PRN (20:05)
[2018-09-21] MEDS: hydrALAZINE 20 MG/1 ML VIAL IV PRN ×2 (00:13→06:18)
[2018-09-21] MEDS: ALBUTEROL/IPRATROPIUM 3 ML NEB RESP TX SCH ×4 (00:24→19:32)
[2018-09-21] MEDS: MORPHINE 4 MG/1 ML VIAL IV PRN ×6 (01:03→21:01)
[2018-09-21] MEDS: VANCOMYCIN INJ 750 MG in SODIUM CHLORIDE 0.9% 250 ML IV SCH ×2 (04:26→14:56)
[2018-09-21 04:42] LABS: Basophils # 0.1 10*3/uL (0.0-0.2); Basophils % 0.4 % (0.0-0.8); Eosinophils # 0.2 10*3/uL (0.0-0.87); Eosinophils % 0.6 % (0.00-10.9); Hematocrit 26.4 VOL% (35.7-47.0); Hemoglobin 8.5 GM/DL (12.0-16.0); Immature Granulocytes % 3.4 %; Immature Granulocytes Absolute 0.89 #; Lymphocytes # 3.2 10*3/uL (1.4-4.0); Lymphocytes % 12.2 % (21.3-54.2); Mean Corpuscular HGB Conc 32.2 GM/DL (32-36); Mean Corpuscular Volume 94.3 FL (87-102); Mean Platelet Volume 11.4 FL (9.6-12.0); Monocytes % 3.4 % (1.7-12.7); Platelet Count 218 T/CUMM (130-400); Red Cell Distribution Width 15.7 % (9.3-17.3); White Blood Count 26.3 T/CUMM (4-12)
[2018-09-21 05:03] LABS: Albumin 1.7 G/DL (3.4-5.0); Bilirubin,Total 0.8 MG/DL (0.2-1.0); Calcium 8.1 MG/DL (8.5-10.1); Osmolality,Calculated 309.9 MOS/KG (273-304); Total Protein 5.9 G/DL (6.4-8.3)
[2018-09-21 05:04] LABS: Prealbumin 13.8 MG/DL (20-40)
[2018-09-21] MEDS: INSULIN REGULAR 100 UNIT/ML SUBCUT SCH ×3 (05:27→18:40)
[2018-09-21 05:45] LABS: Band Neutrophils 2 % (0-10); Eosinophils 1 % (0-10); Lymphocytes 13 % (20-55); Segmented Neutrophils 82 % (50-85); Total Cells Counted 100
[2018-09-21 05:46] LABS: Anisocytosis 1+; Hypochromasia 1+; Platelet Estimate Adequate
[2018-09-21] MEDS: ENOXAPARIN 40 MG/0.4 ML SYRINGE SUBCUT SCH (08:23)
[2018-09-21] MEDS: POTASSIUM CHLORIDE 20 MEQ/15 ML UDCUP PER TUBE SCH (08:25)
[2018-09-21] MEDS: DILTIAZEM 90 MG TABLET PO SCH ×3 (08:25→22:18)
[2018-09-21] MEDS: PANTOPRAZOLE 40 MG VIAL IV SCH (08:25)
[2018-09-21] MEDS ORDERED: FUROSEMIDE 20 MG/2 ML VIAL IV ONE (08:41)
[2018-09-21] MEDS: CHLORHEXIDINE 4% SOLN 118 ML BOTTLE TOP SCH (08:50)
[2018-09-21] MEDS: SODIUM HYPOCHLORITE 0.25% IRRIG 473 ML BOTTLE TOP SCH (08:50)
[2018-09-21] MEDS: PIPERACILLIN/TAZOBACTAM 3,375 MG in SODIUM CHLORIDE 0.9% 100 ML IV SCH ×2 (11:48→22:37)
[2018-09-21] MEDS: METOCLOPRAMIDE 10 MG/2 ML VIAL IV SCH ×2 (11:48→21:21)
[2018-09-21] MEDS ORDERED: SODIUM CHLORIDE 0.9% 1,000 ML IV ONE (12:24)
[2018-09-21] MEDS: FAT EMULSION 20% 250 ML IV SCH (13:52)
[2018-09-21] MEDS: RAMIPRIL 5 MG CAPSULE PO SCH (13:55)
[2018-09-21] MEDS ORDERED: PANTOPRAZOLE 40 MG VIAL IV ONE (15:29)
[2018-09-21 16:31] LABS: Hematocrit 21.1 VOL% (35.7-47.0); Platelet Count 226 T/CUMM (130-400)
[2018-09-21 16:44] LABS: Hemoglobin 6.6 GM/DL (12.0-16.0); Partial Thromboplastin Time 25.4 SECS (0-40)
[2018-09-21] MEDS ORDERED: SODIUM CHLORIDE 0.9% 1,000 ML IV PRN (17:01)
[2018-09-21 17:40] LABS: ABG Base Excess 0.3 MMOL/L (-2.5-2.5); ABG HCO3 24.7 MMOL/L (20-26); ABG Oxygen Saturation 98.5 % (95-100); ABG PCO2 31.2 MM HG (35-48); ABG PH 7.482 (7.35-7.45); ABG TCO2 21.5 MMOL/L (23-27); Allen Test Positive
[2018-09-21 18:04] LABS: Apearance,Urine CLEAR (Clear); Bilirubin,Urine Negative (Negative); Blood, Urine Negative (Negative); Glucose,Urine (UA) Negative (Negative); Ketones,Urine Negative (Negative); Mucus,Urine Occasional /LPF (Occasional); Nitrite,Urine Negative (Negative); Protein,Urine Negative; RBC,Urine 2 /HPF (0-4); Squamous Epithelial Cell,Urine Occasional /HPF (0-10); Urine Color Yellow (Yellow); Urine Specific Gravity 1.013 (1.001-1.035); Urine Urobilinogen < 2.0 EU/DL (0.2-1.0); WBC,Urine 4 /HPF (0-6)
[2018-09-21] MEDS: [UNRECOGNIZED DRUG - OTHER] IV SCH (18:28)
[2018-09-21] MEDS: TRACE ELEMENTS IV SCH (18:28)
[2018-09-21] MEDS: MULTIVITAMIN IV SCH (18:28)
[2018-09-21] MEDS: POTASSIUM CHLORIDE IV SCH (18:28)
[2018-09-21] MEDS: SODIUM CHLORIDE 23.4% CONC INJ 38.5 MEQ in STERILE WATER INJ 1,000 ML IV SCH ×2 (18:32→19:00)
[2018-09-21] MEDS ORDERED: PROPOFOL 1,000 MG/100 ML BOTTLE IV ONE (19:28)
[2018-09-21] MEDS: PROPOFOL 1,000 MG/100 ML BOTTLE IV SCH (19:35)
[2018-09-21] MEDS ORDERED: MIDAZOLAM 2 MG/2 ML VIAL ONE (19:41)
[2018-09-21] MEDS ORDERED: ETOMIDATE 40 MG/20 ML VIAL IV ONE (19:41)
[2018-09-21] MEDS ORDERED: SUCCINYLCHOLINE 200 MG/10 ML VIAL ONE (19:41)
[2018-09-21] MEDS ORDERED: ROCURONIUM 100 MG/10 ML VIAL IV ONE (19:42)
[2018-09-21 20:34] LABS: ABG Base Excess -3.2 MMOL/L (-2.5-2.5); ABG HCO3 21.3 MMOL/L (20-26); ABG Oxygen Saturation 98.3 % (95-100); ABG PH 7.389 (7.35-7.45); ABG PO2 144.3 MM HG (80-95); ABG TCO2 22.4 MMOL/L (23-27); Allen Test Positive; Pt O2 Delivery Device Ventilator
[2018-09-21] MEDS: TERAZOSIN 5 MG CAPSULE PO SCH (22:18)
[2018-09-21] MEDS: ROSUVASTATIN 10 MG TABLET PO SCH (22:18)
[2018-09-21] MEDS: GABAPENTIN 100 MG CAPSULE PO SCH (22:19)
[2018-09-21 22:27] LABS: Hematocrit 35.2 VOL% (35.7-47.0)
[2018-09-21 22:30] LABS: Hemoglobin 11.7 GM/DL (12.0-16.0)
[2018-09-22] MEDS ORDERED: SODIUM CHLORIDE 0.9% 500 ML IV ONE (01:06)
[2018-09-22] MEDS: ALBUTEROL/IPRATROPIUM 3 ML NEB RESP TX SCH ×4 (01:18→19:04)
[2018-09-22] MEDS: PROPOFOL 1,000 MG/100 ML BOTTLE IV SCH ×4 (01:49→20:41)
[2018-09-22] MEDS: METOCLOPRAMIDE 10 MG/2 ML VIAL IV SCH ×5 (01:50→23:55)
[2018-09-22 01:53] LABS: Hematocrit 32.5 VOL% (35.7-47.0); Hemoglobin 10.8 GM/DL (12.0-16.0)
[2018-09-22] MEDS: INSULIN REGULAR 100 UNIT/ML SUBCUT SCH ×4 (01:57→17:54)
[2018-09-22 04:38] LABS: Allen Test Positive; Pt O2 Delivery Device Ventilator
[2018-09-22 04:39] LABS: ABG Base Excess -4.5 MMOL/L (-2.5-2.5); ABG HCO3 20.8 MMOL/L (20-26); ABG PCO2 25.7 MM HG (35-48); ABG PH 7.456 (7.35-7.45)
[2018-09-22] MEDS: VANCOMYCIN INJ 750 MG in SODIUM CHLORIDE 0.9% 250 ML IV SCH (05:49)
[2018-09-22 06:59] LABS: Calcium 7.5 MG/DL (8.5-10.1)
[2018-09-22 07:05] LABS: Basophils # 0.1 10*3/uL (0.0-0.2); Basophils % 0.1 % (0.0-0.8); Eosinophils # 0.1 10*3/uL (0.0-0.87); Eosinophils % 0.2 % (0.00-10.9); Hematocrit 32.3 VOL% (35.7-47.0); Hemoglobin 10.6 GM/DL (12.0-16.0); Immature Granulocytes % 3.4 %; Immature Granulocytes Absolute 1.46 #; Lymphocytes # 2.1 10*3/uL (1.4-4.0); Lymphocytes % 4.9 % (21.3-54.2); Mean Corpuscular HGB Conc 32.8 GM/DL (32-36); Mean Corpuscular Volume 89.5 FL (87-102); Mean Platelet Volume 11.7 FL (9.6-12.0); Neutrophils % 88.4 % (38.7-73.9); Platelet Count 182 T/CUMM (130-400); Red Blood Count 3.61 MC/CUMM (3.8-5.5); Red Cell Distribution Width 16.3 % (9.3-17.3)
[2018-09-22 07:08] LABS: White Blood Count 42.6 T/CUMM (4-12)
[2018-09-22] MEDS: PIPERACILLIN/TAZOBACTAM 3,375 MG in SODIUM CHLORIDE 0.9% 100 ML IV SCH ×2 (07:10→12:21)
[2018-09-22 07:25] LABS: Anisocytosis 1+; Band Neutrophils 24 % (0-10); Lymphocytes 6 % (20-55); Platelet Estimate Normal; Segmented Neutrophils 66 % (50-85); Smudge Cells Few; Total Cells Counted 100
[2018-09-22] MEDS: SODIUM CHLORIDE 23.4% CONC INJ 38.5 MEQ in STERILE WATER INJ 1,000 ML IV SCH ×2 (07:48→11:45)
[2018-09-22 09:12] LABS: Hematocrit 31.9 VOL% (35.7-47.0); Hemoglobin 10.5 GM/DL (12.0-16.0)
[2018-09-22 10:28] LABS: Albumin 1.9 G/DL (3.4-5.0); Bilirubin,Direct 0.32 MG/DL (0.0-0.20); Bilirubin,Indirect 0.4 MG/DL (0.0-1.0); Bilirubin,Total 0.7 MG/DL (0.2-1.0); Total Protein 5.6 G/DL (6.4-8.3)
[2018-09-22] MEDS: DILTIAZEM 90 MG TABLET PO SCH (11:42)
[2018-09-22] MEDS ORDERED: DILTIAZEM 50 MG/10 ML VIAL IV ONE (11:54)
[2018-09-22] MEDS: RAMIPRIL 5 MG CAPSULE PO SCH (11:58)
[2018-09-22] MEDS: dilTIAZem Drip 125 MG/125 ML PREMIX IV SCH (12:14)
[2018-09-22] MEDS: PANTOPRAZOLE 40 MG VIAL IV SCH (12:15)
[2018-09-22] MEDS: CHLORHEXIDINE 4% SOLN 118 ML BOTTLE TOP SCH (12:36)
[2018-09-22] MEDS: SODIUM HYPOCHLORITE 0.25% IRRIG 473 ML BOTTLE TOP SCH (12:36)
[2018-09-22] MEDS: POTASSIUM CHLORIDE 20 MEQ/15 ML UDCUP PER TUBE SCH (12:37)
[2018-09-22] MEDS: ENOXAPARIN 40 MG/0.4 ML SYRINGE SUBCUT SCH (12:37)
[2018-09-22] MEDS: SODIUM BICARB INJ 100 MEQ in DEXTROSE 5% 1,000 ML IV SCH (14:51)
[2018-09-22] MEDS: metroNIDAZOLE INJ 500 MG in PREMIX 1 EACH IV SCH ×2 (14:52→23:50)
[2018-09-22] MEDS: RIFAXIMIN 550 MG TABLET PO SCH ×2 (16:31→20:28)
[2018-09-22 16:54] LABS: Hemoglobin 9.7 GM/DL (12.0-16.0)
[2018-09-22] MEDS ORDERED: VANCOMYCIN 50 MG/ML 60 ML/BOTTLE PO SCH (18:00)
[2018-09-22] MEDS: [UNRECOGNIZED DRUG - OTHER] IV SCH (18:14)
[2018-09-22] MEDS: POTASSIUM CHLORIDE IV SCH (18:14)
[2018-09-22] MEDS: TRACE ELEMENTS IV SCH (18:14)
[2018-09-22] MEDS: MULTIVITAMIN IV SCH (18:14)
[2018-09-22] MEDS: VANCOMYCIN 50 MG/ML 60 ML/BOTTLE PO SCH (18:15)
[2018-09-22] MEDS: HYDROcod/ACETAMIN 7.5-325 MG/15 ML UDCUP PO PRN (20:27)
[2018-09-22] MEDS: ROSUVASTATIN 10 MG TABLET PO SCH (20:28)
[2018-09-22] MEDS: GABAPENTIN 100 MG CAPSULE PO SCH (20:28)
[2018-09-22] MEDS: TERAZOSIN 5 MG CAPSULE PO SCH (20:28)
[2018-09-22 20:53] LABS: Hematocrit 28.9 VOL% (35.7-47.0); Hemoglobin 9.7 GM/DL (12.0-16.0)
[2018-09-23] MEDS: INSULIN REGULAR 100 UNIT/ML SUBCUT SCH ×4 (00:13→17:16)
[2018-09-23] MEDS: VANCOMYCIN 50 MG/ML 60 ML/BOTTLE PO SCH ×4 (00:14→17:23)
[2018-09-23] MEDS: ALBUTEROL/IPRATROPIUM 3 ML NEB RESP TX SCH ×4 (00:37→18:44)
[2018-09-23] MEDS: PROPOFOL 1,000 MG/100 ML BOTTLE IV SCH ×4 (02:38→18:59)
[2018-09-23] MEDS: SODIUM BICARB INJ 100 MEQ in DEXTROSE 5% 1,000 ML IV SCH ×3 (02:39→16:23)
[2018-09-23 02:45] LABS: Basophils # 0.1 10*3/uL (0.0-0.2); Basophils % 0.3 % (0.0-0.8); Eosinophils # 0.3 10*3/uL (0.0-0.87); Eosinophils % 0.8 % (0.00-10.9); Hematocrit 26.7 VOL% (35.7-47.0); Immature Granulocytes % 2.8 %; Immature Granulocytes Absolute 1.01 #; Lymphocytes # 2.8 10*3/uL (1.4-4.0); Lymphocytes % 7.7 % (21.3-54.2); Mean Corpuscular HGB Conc 33.7 GM/DL (32-36); Mean Corpuscular Volume 90.2 FL (87-102); Mean Platelet Volume 11.2 FL (9.6-12.0); Monocytes % 3.3 % (1.7-12.7); Neutrophils % 85.1 % (38.7-73.9); Platelet Count 180 T/CUMM (130-400); Red Blood Count 2.96 MC/CUMM (3.8-5.5); Red Cell Distribution Width 16.7 % (9.3-17.3); White Blood Count 36.7 T/CUMM (4-12)
[2018-09-23 03:12] LABS: Albumin 1.7 G/DL (3.4-5.0); Bilirubin,Direct 0.14 MG/DL (0.0-0.20); Bilirubin,Indirect 0.3 MG/DL (0.0-1.0); Bilirubin,Total 0.4 MG/DL (0.2-1.0); Total Protein 5.4 G/DL (6.4-8.3)
[2018-09-23 03:59] LABS: Band Neutrophils 1 % (0-10); Eosinophils 2 % (0-10); Lymphocytes 10 % (20-55); Segmented Neutrophils 84 % (50-85); Total Cells Counted 100
[2018-09-23 04:00] LABS: Hypochromasia Slight; Platelet Estimate Normal
[2018-09-23 05:17] LABS: ABG Base Excess -2.3 MMOL/L (-2.5-2.5); ABG HCO3 22.5 MMOL/L (20-26); ABG Oxygen Saturation 99.6 % (95-100); ABG PCO2 33.5 MM HG (35-48); ABG PH 7.418 (7.35-7.45); ABG TCO2 19.9 MMOL/L (23-27)
[2018-09-23] MEDS: metroNIDAZOLE INJ 500 MG in PREMIX 1 EACH IV SCH ×3 (06:20→23:00)
[2018-09-23] MEDS: METOCLOPRAMIDE 10 MG/2 ML VIAL IV SCH ×2 (06:20→13:01)
[2018-09-23] MEDS: RIFAXIMIN 550 MG TABLET PO SCH ×2 (10:13→21:35)
[2018-09-23] MEDS: PANTOPRAZOLE 40 MG VIAL IV SCH (10:13)
[2018-09-23] MEDS: HYDROcod/ACETAMIN 7.5-325 MG/15 ML UDCUP PO PRN ×2 (10:13→16:22)
[2018-09-23] MEDS: dilTIAZem Drip 125 MG/125 ML PREMIX IV SCH (10:15)
[2018-09-23 11:02] LABS: Hematocrit 26.1 VOL% (35.7-47.0); Hemoglobin 8.8 GM/DL (12.0-16.0)
[2018-09-23 11:29] LABS: Calcium 7.3 MG/DL (8.5-10.1); Osmolality,Calculated 298.7 MOS/KG (273-304)
[2018-09-23] MEDS: SODIUM HYPOCHLORITE 0.25% IRRIG 473 ML BOTTLE TOP SCH (11:40)
[2018-09-23] MEDS: CHLORHEXIDINE 4% SOLN 118 ML BOTTLE TOP SCH (11:50)
[2018-09-23] MEDS: POTASSIUM CHLORIDE RIDER 20 MEQ in PREMIX 1 EACH IV PRN ×2 (13:01→15:01)
[2018-09-23] MEDS: POTASSIUM CHLORIDE 20 MEQ/15 ML UDCUP PER TUBE SCH ×2 (16:23→20:30)
[2018-09-23] MEDS: POTASSIUM CHLORIDE RIDER 10 MEQ in PREMIX 1 EACH IV PRN (16:43)
[2018-09-23] MEDS: MULTIVITAMIN IV SCH (17:22)
[2018-09-23] MEDS: TRACE ELEMENTS IV SCH (17:22)
[2018-09-23] MEDS: [UNRECOGNIZED DRUG - OTHER] IV SCH (17:22)
[2018-09-23] MEDS: POTASSIUM CHLORIDE IV SCH (17:22)
[2018-09-23] MEDS: ROSUVASTATIN 10 MG TABLET PO SCH (21:35)
[2018-09-23] MEDS: TERAZOSIN 5 MG CAPSULE PO SCH (21:35)
[2018-09-23] MEDS: GABAPENTIN 100 MG CAPSULE PO SCH (21:35)
[2018-09-24] MEDS: INSULIN REGULAR 100 UNIT/ML SUBCUT SCH ×5 (00:19→23:40)
[2018-09-24] MEDS: VANCOMYCIN 50 MG/ML 60 ML/BOTTLE PO SCH ×5 (00:30→23:40)
[2018-09-24] MEDS: PROPOFOL 1,000 MG/100 ML BOTTLE IV SCH ×4 (00:30→19:58)
[2018-09-24] MEDS: POTASSIUM CHLORIDE 20 MEQ/15 ML UDCUP PER TUBE SCH (00:45)
[2018-09-24] MEDS: ALBUTEROL/IPRATROPIUM 3 ML NEB RESP TX SCH ×4 (01:12→19:49)
[2018-09-24] MEDS: SODIUM BICARB INJ 100 MEQ in DEXTROSE 5% 1,000 ML IV SCH ×2 (05:55→09:08)
[2018-09-24 06:22] LABS: ABG Base Excess 0.6 MMOL/L (-2.5-2.5); ABG Oxygen Saturation 99.6 % (95-100); ABG PCO2 35.2 MM HG (35-48); ABG PH 7.448 (7.35-7.45); ABG TCO2 22.5 MMOL/L (23-27)
[2018-09-24 06:25] LABS: Basophils # 0.2 10*3/uL (0.0-0.2); Basophils % 0.5 % (0.0-0.8); Eosinophils # 0.3 10*3/uL (0.0-0.87); Hematocrit 26.8 VOL% (35.7-47.0); Hemoglobin 8.6 GM/DL (12.0-16.0); Immature Granulocytes % 3.8 %; Immature Granulocytes Absolute 1.13 #; Lymphocytes # 2.6 10*3/uL (1.4-4.0); Lymphocytes % 8.5 % (21.3-54.2); Mean Corpuscular HGB Conc 32.1 GM/DL (32-36); Mean Corpuscular Volume 91.5 FL (87-102); Mean Platelet Volume 11.6 FL (9.6-12.0); Monocytes % 4.1 % (1.7-12.7); Neutrophils % 82.1 % (38.7-73.9); Platelet Count 226 T/CUMM (130-400); Red Blood Count 2.93 MC/CUMM (3.8-5.5); Red Cell Distribution Width 16.4 % (9.3-17.3)
[2018-09-24 06:44] LABS: Band Neutrophils 3 % (0-10); Eosinophils 1 % (0-10); Lymphocytes 7 % (20-55); Segmented Neutrophils 86 % (50-85); Total Cells Counted 100
[2018-09-24 06:45] LABS: Hypochromasia 1+; Platelet Estimate Adequate
[2018-09-24] MEDS: metroNIDAZOLE INJ 500 MG in PREMIX 1 EACH IV SCH ×3 (06:50→23:39)
[2018-09-24 06:56] LABS: Calcium 6.9 MG/DL (8.5-10.1)
[2018-09-24] MEDS: HYDROcod/ACETAMIN 7.5-325 MG/15 ML UDCUP PO PRN ×2 (09:23→20:47)
[2018-09-24] MEDS: ENOXAPARIN 40 MG/0.4 ML SYRINGE SUBCUT SCH (09:23)
[2018-09-24] MEDS: PANTOPRAZOLE 40 MG VIAL IV SCH ×2 (09:24→20:47)
[2018-09-24] MEDS: RIFAXIMIN 550 MG TABLET PO SCH ×2 (09:28→20:47)
[2018-09-24] MEDS: SODIUM HYPOCHLORITE 0.25% IRRIG 473 ML BOTTLE TOP SCH (09:31)
[2018-09-24] MEDS: CHLORHEXIDINE 4% SOLN 118 ML BOTTLE TOP SCH (09:37)
[2018-09-24] MEDS: CHOLESTYRAMINE/ASPARTAME 4 GM PACK PER TUBE SCH (12:07)
[2018-09-24] MEDS: dilTIAZem Drip 125 MG/125 ML PREMIX IV SCH (13:43)
[2018-09-24] MEDS: [UNRECOGNIZED DRUG - OTHER] IV SCH (17:39)
[2018-09-24] MEDS: POTASSIUM CHLORIDE IV SCH (17:39)
[2018-09-24] MEDS: TRACE ELEMENTS IV SCH (17:39)
[2018-09-24] MEDS: MULTIVITAMIN IV SCH (17:39)
[2018-09-24] MEDS: ROSUVASTATIN 10 MG TABLET PO SCH (20:47)
[2018-09-24] MEDS: GABAPENTIN 100 MG CAPSULE PO SCH (20:47)
[2018-09-24] MEDS: TERAZOSIN 5 MG CAPSULE PO SCH (20:47)
[2018-09-25] MEDS: PROPOFOL 1,000 MG/100 ML BOTTLE IV SCH (00:58)
[2018-09-25] MEDS: ALBUTEROL/IPRATROPIUM 3 ML NEB RESP TX SCH ×4 (02:24→19:38)
[2018-09-25 04:12] LABS: ABG Base Excess 0.5 MMOL/L (-2.5-2.5); ABG HCO3 24.2 MMOL/L (20-26); ABG Oxygen Saturation 98.5 % (95-100); ABG PH 7.458 (7.35-7.45); ABG PO2 155.9 MM HG (80-95); ABG TCO2 25.3 MMOL/L (23-27)
[2018-09-25 04:16] LABS: Basophils # 0.1 10*3/uL (0.0-0.2); Basophils % 0.4 % (0.0-0.8); Eosinophils # 0.2 10*3/uL (0.0-0.87); Eosinophils % 0.8 % (0.00-10.9); Hematocrit 25.9 VOL% (35.7-47.0); Hemoglobin 8.3 GM/DL (12.0-16.0); Immature Granulocytes % 4.6 %; Immature Granulocytes Absolute 1.03 #; Lymphocytes # 3.2 10*3/uL (1.4-4.0); Lymphocytes % 14.2 % (21.3-54.2); Mean Corpuscular Volume 92.5 FL (87-102); Mean Platelet Volume 10.7 FL (9.6-12.0); Monocytes % 5.2 % (1.7-12.7); Neutrophils % 74.8 % (38.7-73.9); Platelet Count 267 T/CUMM (130-400); Red Cell Distribution Width 16.2 % (9.3-17.3); White Blood Count 22.4 T/CUMM (4-12)
[2018-09-25 04:45] LABS: Calcium 6.9 MG/DL (8.5-10.1); Prealbumin 20.6 MG/DL (20-40)
[2018-09-25] MEDS: INSULIN REGULAR 100 UNIT/ML SUBCUT SCH ×4 (05:11→23:21)
[2018-09-25 05:16] LABS: Band Neutrophils 4 % (0-10); Lymphocytes 10 % (20-55); Metamyelocytes 1 %; Platelet Estimate Normal; Segmented Neutrophils 80 % (50-85); Total Cells Counted 100
[2018-09-25 05:17] LABS: Hypochromasia 2+
[2018-09-25] MEDS: metroNIDAZOLE INJ 500 MG in PREMIX 1 EACH IV SCH ×3 (06:04→22:32)
[2018-09-25] MEDS: VANCOMYCIN 50 MG/ML 60 ML/BOTTLE PO SCH ×4 (06:04→23:29)
[2018-09-25] MEDS: HYDROcod/ACETAMIN 7.5-325 MG/15 ML UDCUP PO PRN ×4 (07:27→19:35)
[2018-09-25] MEDS: SODIUM HYPOCHLORITE 0.25% IRRIG 473 ML BOTTLE TOP SCH (07:52)
[2018-09-25] MEDS: CHLORHEXIDINE 4% SOLN 118 ML BOTTLE TOP SCH (07:52)
[2018-09-25] MEDS: PANTOPRAZOLE 40 MG VIAL IV SCH ×2 (09:12→21:45)
[2018-09-25] MEDS: RIFAXIMIN 550 MG TABLET PO SCH ×2 (09:12→21:44)
[2018-09-25] MEDS: CHOLESTYRAMINE/ASPARTAME 4 GM PACK PER TUBE SCH (09:12)
[2018-09-25] MEDS: ENOXAPARIN 40 MG/0.4 ML SYRINGE SUBCUT SCH (09:13)
[2018-09-25] MEDS: DILTIAZEM 60 MG TABLET PO SCH ×4 (11:37→22:32)
[2018-09-25] MEDS: POTASSIUM PHOS/SOD PHOS POWDER 250 MG PACK PO SCH ×2 (11:37→15:21)
[2018-09-25] MEDS: dilTIAZem Drip 125 MG/125 ML PREMIX IV SCH (12:36)
[2018-09-25] MEDS: SODIUM BICARB INJ 100 MEQ in DEXTROSE 5% 1,000 ML IV SCH (12:44)
[2018-09-25] MEDS: DEXTROSE 5% NACL 0.45% 1,000 ML IV SCH (16:25)
[2018-09-25] MEDS: TERAZOSIN 5 MG CAPSULE PO SCH (21:44)
[2018-09-25] MEDS: GABAPENTIN 100 MG CAPSULE PO SCH (21:45)
[2018-09-25] MEDS: ROSUVASTATIN 10 MG TABLET PO SCH (21:45)
[2018-09-26] MEDS: ALBUTEROL/IPRATROPIUM 3 ML NEB RESP TX SCH ×3 (01:00→12:49)
[2018-09-26] MEDS: HYDROcod/ACETAMIN 7.5-325 MG/15 ML UDCUP PO PRN ×2 (01:30→09:31)
[2018-09-26] MEDS: DEXTROSE 5% NACL 0.45% 1,000 ML IV SCH ×2 (02:15→12:33)
[2018-09-26] MEDS: DILTIAZEM 60 MG TABLET PO SCH ×3 (03:19→12:08)
[2018-09-26] MEDS: VANCOMYCIN 50 MG/ML 60 ML/BOTTLE PO SCH ×2 (05:32→12:09)
[2018-09-26] MEDS: INSULIN REGULAR 100 UNIT/ML SUBCUT SCH ×2 (06:02→12:09)
[2018-09-26] MEDS: metroNIDAZOLE INJ 500 MG in PREMIX 1 EACH IV SCH (06:02)
[2018-09-26 08:29] LABS: Basophils # 0.1 10*3/uL (0.0-0.2); Basophils % 0.4 % (0.0-0.8); Eosinophils # 0.2 10*3/uL (0.0-0.87); Eosinophils % 1.1 % (0.00-10.9); Hematocrit 25.9 VOL% (35.7-47.0); Hemoglobin 8.1 GM/DL (12.0-16.0); Immature Granulocytes % 3.3 %; Lymphocytes # 2.8 10*3/uL (1.4-4.0); Lymphocytes % 15.4 % (21.3-54.2); Mean Corpuscular HGB Conc 31.3 GM/DL (32-36); Mean Corpuscular Volume 93.5 FL (87-102); Mean Platelet Volume 11.3 FL (9.6-12.0); Monocytes % 5.9 % (1.7-12.7); Neutrophils % 73.9 % (38.7-73.9); Platelet Count 316 T/CUMM (130-400); Red Blood Count 2.77 MC/CUMM (3.8-5.5); White Blood Count 17.9 T/CUMM (4-12)
[2018-09-26 08:41] LABS: Alanine Aminotransferase 53 U/L (13-56); Albumin 1.6 G/DL (3.4-5.0); Alkaline Phosphatase 81 U/L (45-117); Aspartate Amino Transferase 41 U/L (0-37); Bilirubin,Total < 0.39 MG/DL (0.2-1.0); Blood Urea Nitrogen 14 MG/DL (7-18); Calcium 7.3 MG/DL (8.5-10.1); Glucose 148 MG/DL (74-106); Osmolality,Calculated 284.3 MOS/KG (273-304); Total Protein 5.3 G/DL (6.4-8.3)
[2018-09-26 08:52] LABS: Anisocytosis 1+; Band Neutrophils 12 % (0-10); Eosinophils 1 % (0-10); Lymphocytes 12 % (20-55); Platelet Estimate Normal; Segmented Neutrophils 72 % (50-85); Total Cells Counted 100
[2018-09-26] MEDS: ENOXAPARIN 40 MG/0.4 ML SYRINGE SUBCUT SCH (09:31)
[2018-09-26] MEDS: CHOLESTYRAMINE/ASPARTAME 4 GM PACK PER TUBE SCH (09:31)
[2018-09-26] MEDS: PANTOPRAZOLE 40 MG VIAL IV SCH (09:31)
[2018-09-26] MEDS: RIFAXIMIN 550 MG TABLET PO SCH (09:31)
[2018-09-26] MEDS ORDERED: LACTOBACILLUS RHAMNOSUS GG CAPSULE PO SCH (10:30)
[2018-09-26] MEDS: CHLORHEXIDINE 4% SOLN 118 ML BOTTLE TOP SCH (10:55)
[2018-09-26] MEDS: SODIUM HYPOCHLORITE 0.25% IRRIG 473 ML BOTTLE TOP SCH (10:55)
[2018-09-26 12:09] VITALS: BP 162/64
== END 2018-09-26 14:55 | DRG 329 ==
LOC: N.ED 09:32 → N.EDINP 13:06 → SUPCPDRO 13:06 → N.4E 14:33 → N.CC 09-13 08:09 → N.3E 09-19 05:07 → N.CC 09-21 17:30
PROVIDERS: ADMIT Surgery; ATTEND Surgery

== ENCOUNTER 2020-04-13 10:45 | Inpatient (IN) ==
[2020-04-13] MEDS ORDERED: SODIUM CHLORIDE 0.9% 500 ML IV STA (11:07)
[2020-04-13] MEDS ORDERED: PANTOPRAZOLE 40 MG VIAL IV STA (11:07)
[2020-04-13] MEDS ORDERED: ONDANSETRON 4 MG/2 ML VIAL IV STA (11:07)
[2020-04-13 12:06] LABS: Basophils % 0.5 % (0.0-0.8); Eosinophils # 0.2 10*3/uL (0.0-0.87); Eosinophils % 2.3 % (0.00-10.9); Hemoglobin 10.2 GM/DL (12.0-16.0); Immature Granulocytes % 0.3 %; Immature Granulocytes Absolute 0.02 #; Lymphocytes # 2.1 10*3/uL (1.4-4.0); Lymphocytes % 28.3 % (21.3-54.2); Mean Corpuscular HGB Conc 32.9 GM/DL (32-36); Mean Corpuscular Volume 92.3 FL (87-102); Mean Platelet Volume 10.3 FL (9.6-12.0); Monocytes % 5.7 % (1.7-12.7); Neutrophils % 62.9 % (38.7-73.9); Platelet Count 173 T/CUMM (130-400); Red Blood Count 3.36 MC/CUMM (3.8-5.5); Red Cell Distribution Width 14.9 % (9.3-17.3); White Blood Count 7.5 T/CUMM (4-12)
[2020-04-13 12:16] LABS: INR 1.1; PT Patient Result 11.3 SECS (9.8-11.9); Partial Thromboplastin Time 29.4 SECS (23.9-33.8)
[2020-04-13 12:25] LABS: Alanine Aminotransferase 14 U/L (13-56); Albumin 3.5 G/DL (3.4-5.0); Alkaline Phosphatase 62 U/L (45-117); Aspartate Amino Transferase 22 U/L (0-37); Bilirubin,Total < 0.39 MG/DL (0.2-1.0); Blood Urea Nitrogen 15 MG/DL (7-18); Estimated Glom Filtration Rate 84 ML/MIN; Glucose 102 MG/DL (74-106); Total Protein 7.6 G/DL (6.4-8.3)
[2020-04-13] MEDS ORDERED: GLUCAGON 1 MG VIAL IM PRN (13:02)
[2020-04-13] MEDS ORDERED: DEXTROSE 50% 25 GM/50 ML VIAL IV PRN (13:02)
[2020-04-13] MEDS ORDERED: ACETAMINOPHEN 325 MG TABLET PO PRN (13:02)
[2020-04-13] MEDS ORDERED: ONDANSETRON 4 MG/2 ML VIAL IV PRN (13:02)
[2020-04-13] MEDS ORDERED: SODIUM CHLORIDE 0.9% 1,000 ML IV PRN (14:29)
[2020-04-13] MEDS ORDERED: NON-FORMULARY MEDICATION (Polyvinyl Alcohol-Povidon(Pf) [Refresh Classic (Pf)] 1.4-0.6 % D RIGHT EYE PRN (14:33)
[2020-04-13] MEDS ORDERED: PEG PROPYLENE GLYCOL LEFT EYE PRN (14:33)
[2020-04-13 17:25] LABS: Hematocrit 25.1 VOL% (35.7-47.0); Hemoglobin 8.1 GM/DL (12.0-16.0)
[2020-04-13] MEDS: SODIUM CHLORIDE 0.9% 1,000 ML IV SCH (19:44)
[2020-04-13] MEDS: PIPERACILLIN/TAZOBACTAM 3,375 MG in SODIUM CHLORIDE 0.9% 100 ML IV SCH (21:48)
[2020-04-13] MEDS: PANTOPRAZOLE 40 MG VIAL IV SCH (21:49)
[2020-04-13] MEDS: TEMAZEPAM 15 MG CAPSULE PO SCH (21:50)
[2020-04-13] MEDS: TERAZOSIN 5 MG CAPSULE PO SCH (21:50)
[2020-04-13 23:23] LABS: Hematocrit 21.6 VOL% (35.7-47.0); Hemoglobin 7.2 GM/DL (12.0-16.0)
[2020-04-14 01:29] LABS: Basophils % 0.5 % (0.0-0.8); Eosinophils # 0.3 10*3/uL (0.0-0.87); Eosinophils % 4.3 % (0.00-10.9); Hematocrit 21.7 VOL% (35.7-47.0); Hemoglobin 7.2 GM/DL (12.0-16.0); Immature Granulocytes % 0.3 %; Immature Granulocytes Absolute 0.02 #; Lymphocytes # 2.1 10*3/uL (1.4-4.0); Lymphocytes % 31.7 % (21.3-54.2); Mean Corpuscular HGB Conc 33.2 GM/DL (32-36); Mean Corpuscular Volume 93.1 FL (87-102); Mean Platelet Volume 10.9 FL (9.6-12.0); Monocytes % 6.5 % (1.7-12.7); Neutrophils % 56.7 % (38.7-73.9); Platelet Count 133 T/CUMM (130-400); Red Blood Count 2.33 MC/CUMM (3.8-5.5); Red Cell Distribution Width 15.3 % (9.3-17.3); White Blood Count 6.5 T/CUMM (4-12)
[2020-04-14 01:37] LABS: Albumin 2.9 G/DL (3.4-5.0); Bilirubin,Total 0.4 MG/DL (0.2-1.0); Calcium 8.5 MG/DL (8.5-10.1); Osmolality,Calculated 291.7 MOS/KG (273-304)
[2020-04-14] MEDS: SODIUM CHLORIDE 0.9% 1,000 ML IV SCH ×2 (04:55→13:39)
[2020-04-14] MEDS: PIPERACILLIN/TAZOBACTAM 3,375 MG in SODIUM CHLORIDE 0.9% 100 ML IV SCH ×3 (05:46→21:35)
[2020-04-14 06:13] LABS: Hematocrit 20.9 VOL% (35.7-47.0); Hemoglobin 6.8 GM/DL (12.0-16.0)
[2020-04-14] MEDS ORDERED: SODIUM CHLORIDE 0.9% 1,000 ML IV PRN (07:02)
[2020-04-14] MEDS: PANTOPRAZOLE 40 MG VIAL IV SCH ×2 (08:48→21:35)
[2020-04-14] MEDS: POTASSIUM CHLORIDE 20 MEQ TABLET PO SCH ×2 (08:50→13:16)
[2020-04-14] MEDS: ROSUVASTATIN 10 MG TABLET PO SCH ×2 (08:50→13:16)
[2020-04-14] MEDS: ENALAPRIL 10 MG TABLET PO SCH ×2 (08:50→13:20)
[2020-04-14] MEDS: DILTIAZEM CD 300 MG CAPSULE PO SCH ×2 (08:50→13:16)
[2020-04-14] MEDS ORDERED: PANTOPRAZOLE 40 MG VIAL IV SCH (09:00)
[2020-04-14 09:28] LABS: Risk Ratio 2.68; VLDL CHOLESTEROL 11.8 MG/DL
[2020-04-14 09:39] LABS: % Iron Saturation 57.6 % (18-50); Ferritin 65.4 ng/ml (8-252)
[2020-04-14 10:05] LABS: Folate 14.3 NG/ML (5.4-24.0)
[2020-04-14 19:11] LABS: Hematocrit 28.3 VOL% (35.7-47.0)
[2020-04-14 19:12] LABS: Hemoglobin 9.3 GM/DL (12.0-16.0)
[2020-04-14] MEDS: TERAZOSIN 5 MG CAPSULE PO SCH (21:35)
[2020-04-14] MEDS: TEMAZEPAM 15 MG CAPSULE PO SCH (21:35)
[2020-04-15] MEDS: SODIUM CHLORIDE 0.9% 1,000 ML IV SCH ×2 (01:30→14:43)
[2020-04-15] MEDS: PIPERACILLIN/TAZOBACTAM 3,375 MG in SODIUM CHLORIDE 0.9% 100 ML IV SCH ×3 (04:43→22:06)
[2020-04-15 07:23] LABS: Basophils % 0.5 % (0.0-0.8); Eosinophils # 0.4 10*3/uL (0.0-0.87); Eosinophils % 7.9 % (0.00-10.9); Hematocrit 28.4 VOL% (35.7-47.0); Hemoglobin 9.6 GM/DL (12.0-16.0); Immature Granulocytes % 0.2 %; Immature Granulocytes Absolute 0.01 #; Lymphocytes # 2.1 10*3/uL (1.4-4.0); Lymphocytes % 39.1 % (21.3-54.2); Mean Corpuscular HGB Conc 33.8 GM/DL (32-36); Mean Corpuscular Volume 92.2 FL (87-102); Mean Platelet Volume 10.9 FL (9.6-12.0); Monocytes % 9.1 % (1.7-12.7); Neutrophils % 43.2 % (38.7-73.9); Platelet Count 117 T/CUMM (130-400); Red Blood Count 3.08 MC/CUMM (3.8-5.5); Red Cell Distribution Width 15.6 % (9.3-17.3); White Blood Count 5.5 T/CUMM (4-12)
[2020-04-15 07:46] LABS: Hypochromasia 1+; Microcytosis 1+; Ovalocytes Slight; Platelet Estimate Decreased
[2020-04-15 08:09] LABS: Albumin 2.9 G/DL (3.4-5.0); Bilirubin,Total 0.6 MG/DL (0.2-1.0); Calcium 8.3 MG/DL (8.5-10.1); Osmolality,Calculated 287.6 MOS/KG (273-304); Total Protein 5.8 G/DL (6.4-8.3)
[2020-04-15] MEDS: POTASSIUM CHLORIDE 20 MEQ TABLET PO SCH ×3 (09:47→14:52)
[2020-04-15] MEDS: LACTATED RINGERS 1,000 ML IV SCH (09:47)
[2020-04-15] MEDS: ROSUVASTATIN 10 MG TABLET PO SCH ×2 (09:47→14:52)
[2020-04-15] MEDS: DILTIAZEM CD 300 MG CAPSULE PO SCH ×2 (09:47→14:52)
[2020-04-15] MEDS: PANTOPRAZOLE 40 MG VIAL IV SCH ×2 (09:48→22:03)
[2020-04-15] MEDS: ENALAPRIL 10 MG TABLET PO SCH ×2 (09:48→14:52)
[2020-04-15] MEDS ORDERED: LIDOCAINE 2% 5 ML VIAL ONE ×2 (11:04→11:09)
[2020-04-15] MEDS ORDERED: propofoL 200 MG/20 ML VIAL IV ONE (11:04)
[2020-04-15] MEDS ORDERED: BISACODYL 5 MG TABLET PO ONE (12:00)
[2020-04-15] MEDS ORDERED: POLYETHYLENE GLYCOL POWDER 255 GM BOTTLE PO ONE (18:00)
[2020-04-15 19:01] LABS: Hematocrit 30.3 VOL% (35.7-47.0)
[2020-04-15] MEDS ORDERED: CYANOCOBALAMIN 1000 MCG/1 ML VIAL IM ONE (21:00)
[2020-04-15] MEDS: TERAZOSIN 5 MG CAPSULE PO SCH (22:02)
[2020-04-15] MEDS: TEMAZEPAM 15 MG CAPSULE PO SCH (22:02)
[2020-04-16 00:16] LABS: Hematocrit 26.8 VOL% (35.7-47.0); Hemoglobin 9.1 GM/DL (12.0-16.0)
[2020-04-16] MEDS: PIPERACILLIN/TAZOBACTAM 3,375 MG in SODIUM CHLORIDE 0.9% 100 ML IV SCH ×3 (03:11→20:30)
[2020-04-16 05:32] LABS: Basophils % 0.6 % (0.0-0.8); Eosinophils # 0.3 10*3/uL (0.0-0.87); Eosinophils % 5.5 % (0.00-10.9); Hematocrit 26.9 VOL% (35.7-47.0); Immature Granulocytes % 0.4 %; Immature Granulocytes Absolute 0.02 #; Lymphocytes # 2.3 10*3/uL (1.4-4.0); Mean Corpuscular HGB Conc 33.5 GM/DL (32-36); Mean Corpuscular Volume 91.8 FL (87-102); Monocytes % 10.1 % (1.7-12.7); Neutrophils % 40.4 % (38.7-73.9); Platelet Count 126 T/CUMM (130-400); Red Blood Count 2.93 MC/CUMM (3.8-5.5); Red Cell Distribution Width 15.4 % (9.3-17.3); White Blood Count 5.4 T/CUMM (4-12)
[2020-04-16 05:50] LABS: Albumin 2.8 G/DL (3.4-5.0); Bilirubin,Total 0.9 MG/DL (0.2-1.0); Calcium 8.5 MG/DL (8.5-10.1)
[2020-04-16 06:56] LABS: Hypochromasia 1+; Microcytosis 1+
[2020-04-16] MEDS: PANTOPRAZOLE 40 MG VIAL IV SCH ×2 (09:35→20:31)
[2020-04-16] MEDS: LACTATED RINGERS 1,000 ML IV SCH (10:39)
[2020-04-16] MEDS ORDERED: propofoL 200 MG/20 ML VIAL IV ONE ×2 (11:13)
[2020-04-16] MEDS ORDERED: CHOLECALCIFEROL 1,000 UNIT TABLET PO ONE (11:41)
[2020-04-16] MEDS: ROSUVASTATIN 10 MG TABLET PO SCH (12:30)
[2020-04-16] MEDS: POTASSIUM CHLORIDE 20 MEQ TABLET PO SCH (12:30)
[2020-04-16] MEDS: DILTIAZEM CD 300 MG CAPSULE PO SCH (12:30)
[2020-04-16] MEDS: CYANOCOBALAMIN 500 MCG TABLET PO SCH (12:30)
[2020-04-16] MEDS: ENALAPRIL 10 MG TABLET PO SCH (12:31)
[2020-04-16] MEDS: SODIUM CHLORIDE 0.9% 1,000 ML IV SCH ×2 (17:33→20:30)
[2020-04-16] MEDS: TEMAZEPAM 15 MG CAPSULE PO SCH (20:31)
[2020-04-16] MEDS: TERAZOSIN 5 MG CAPSULE PO SCH (21:49)
[2020-04-17] MEDS: PIPERACILLIN/TAZOBACTAM 3,375 MG in SODIUM CHLORIDE 0.9% 100 ML IV SCH ×2 (03:58→13:06)
[2020-04-17 06:11] LABS: Basophils % 0.5 % (0.0-0.8); Eosinophils # 0.3 10*3/uL (0.0-0.87); Eosinophils % 6.8 % (0.00-10.9); Hemoglobin 9.7 GM/DL (12.0-16.0); Immature Granulocytes % 0.2 %; Immature Granulocytes Absolute 0.01 #; Lymphocytes % 44.4 % (21.3-54.2); Mean Corpuscular HGB Conc 33.4 GM/DL (32-36); Mean Corpuscular Volume 91.8 FL (87-102); Mean Platelet Volume 10.4 FL (9.6-12.0); Monocytes % 9.7 % (1.7-12.7); Neutrophils % 38.4 % (38.7-73.9); Platelet Count 138 T/CUMM (130-400); Red Blood Count 3.16 MC/CUMM (3.8-5.5); Red Cell Distribution Width 15.1 % (9.3-17.3); White Blood Count 4.4 T/CUMM (4-12)
[2020-04-17 06:56] LABS: Anisocytosis 1+; Band Neutrophils 2 % (0-10); Eosinophils 4 % (0-10); Lymphocytes 46 % (20-55); Platelet Estimate Adequate; Segmented Neutrophils 41 % (50-85); Total Cells Counted 100
[2020-04-17 06:57] LABS: Macrocytosis Slight
[2020-04-17 07:25] LABS: Calcium 8.8 MG/DL (8.5-10.1)
[2020-04-17 07:26] LABS: Bilirubin,Total 0.87 MG/DL (0.2-1.0); Total Protein 6.4 G/DL (6.4-8.3)
[2020-04-17] MEDS: CYANOCOBALAMIN 500 MCG TABLET PO SCH (10:17)
[2020-04-17] MEDS: POTASSIUM CHLORIDE 20 MEQ TABLET PO SCH (10:17)
[2020-04-17] MEDS: DILTIAZEM CD 300 MG CAPSULE PO SCH (10:17)
[2020-04-17] MEDS: ENALAPRIL 10 MG TABLET PO SCH (10:17)
[2020-04-17] MEDS: ROSUVASTATIN 10 MG TABLET PO SCH (10:17)
[2020-04-17] MEDS: PANTOPRAZOLE 40 MG VIAL IV SCH (10:18)
[2020-04-17] MEDS: SODIUM CHLORIDE 0.9% 1,000 ML IV SCH (10:20)
[2020-04-17] MEDS: LACTATED RINGERS 1,000 ML IV SCH (10:20)
[2020-04-17 12:21] VITALS: BP 159/74
== END 2020-04-17 13:50 | disposition home health service (06) | DRG 378 ==
LOC: N.ED 10:45 → N.TELEN 13:02
PROVIDERS: ADMIT Hospitalist; ATTEND Hospitalist